=== PATIENT | female | born 2000 | race Caucasian/White ===

== ENCOUNTER 2021-05-03 14:15 | Day surgery (SDC) | payer MEDICAID, SELFPAY ==
[2021-05-03] VITALS (10 sets, daily range): BP systolic 126–158; BP diastolic 60–100; PULSE 89–139; RESP 16–18; TEMP 36.6–37.4; O2SAT 95–100; BMI 39.9
--- NOTE | 2021-05-03 14:35 | ED.VIS.FEGU ---
HPI HPI - Female History of Present Illness Chief Complaint: Vag Bleeding Informant: patient Narrative Narrative: Patient presents secondary abdominal cramping and increased vaginal bleeding. She had a medical 2 weeks ago at [facility]. She states was approximately 6 weeks along with a time. She states she had heavy bleeding for the first couple days but has been tapering off. Today she has had increased abdominal cramping and at school today had significant increase in vaginal bleeding. She states that she is passing fist-sized blood clots and is changing a tampon every 10 minutes or so. PFSH PFSH Medical History no medical history no medical history Allergy/AdvReac Type Severity Reaction Status Date / Time Penicillins [PCN] Allergy Hives Verified 05/03/21 14:17 Family History no significant family his Surgical History no surgical history Social History Smoking Status: Unknown if ever smoked ROS ROS ED Constitutional Constitutional ED: Denies chills or fever(s) Eyes Eyes: Denies change in vision ENT ENT ED: Denies sore throat Cardiovascular Cardiovascular: Denies chest pain Respiratory/Chest Respiratory/Chest: Denies cough or dyspnea Gastrointestinal Gastrointestinal: Reports abdominal pain; Denies diarrhea, nausea or vomiting Genitourinary Genitourinary ED: Denies dysuria Musculoskeletal Musculoskeletal: Denies back pain Integumentary Denies rash Neurologic Neurologic: Denies headache(s) or weakness Allergic/Immunologic Allergic/Immunologic ED: Denies urticaria EXAM Physical Exam Const Vital Signs: 05/03/21 14:17 05/03/21 15:14 Temperature 98 F Temperature Source Temporal Pulse Rate 139 H 100 Respiratory Rate 18 18 Blood Pressure 147/100 H 143/84 H Blood Pressure Mean 115 103 Pulse Ox 97 95 Oxygen Delivery Method Room Air Room Air Positive well nourished and well developed General Appearance ED: well developed HEENT Reports moist mucous membranes Eyes PERRL and EOMs intact bilaterally Neck supple Chest Wall inspection of chest normal and palpation of chest normal Resp normal respiratory effort and clear to auscultation bilaterally Cardio Rate: tachycardic GI soft to palpation Auscultation: hypoactive bowel sounds Extremity normal to inspection Neuro oriented x3 Sensorium / Orientation: alert Psych mental status grossly normal Skin no rashes or lesions noted MDM MDM MDM Narrative Medical decision making narrative: 2 IV lines initiated. Patient given IV fluid bolus. Lab work obtained. I spoke with Dr. Felix, on-call for no doc as soon as I saw the patient. She did request a pelvic ultrasound be performed and I asked them to perform that in the ER room. Lab Data Attestation: I reviewed the patient's lab results. Labs: Laboratory Results - last 24 hr 05/03/21 05/03/21 05/03/21 14:35 14:35 14:35 WBC 8.9 RBC 4.78 Hgb 13.4 Hct 38.4 MCV 80.3 L MCH 28.0 MCHC 34.9 RDW Std Deviation 38.9 RDW Coeff of Fdie 13.6 Plt Count 397 MPV 9.4 Immature Gran % (Auto) 0.300 Neut % (Auto) 67.6 Lymph % (Auto) 21.1 Pike % (Auto) 9.4 Eos % (Auto) 1.0 Baso % (Auto) 0.6 Absolute Neuts (auto) 6.0 Absolute Lymphs (auto) 1.88 Nucleated RBC % 0 PT 12.0 INR 0.9 APTT 31.0 Sodium 139 Potassium 3.2 L Chloride 107 Carbon Dioxide 24.0 Anion Gap 8 BUN 11 Creatinine 0.89 Estim Creat Clear Calc 104.50 Est GFR (MDRD) Af Amer 103 Est GFR (MDRD) Non-Af 85 BUN/Creatinine Ratio 12.4 Glucose 117 H Calcium 9.4 HCG, Quant Blood Type Antibody Screen 05/03/21 05/03/21 14:35 14:35 WBC RBC Hgb Hct MCV MCH MCHC RDW Std Deviation RDW Coeff of Fide Plt Count MPV Immature Gran % (Auto) Neut % (Auto) Lymph % (Auto) Pike % (Auto) Eos % (Auto) Baso % (Auto) Absolute Neuts (auto) Absolute Lymphs (auto) Nucleated RBC % PT INR APTT Sodium Potassium Chloride Carbon Dioxide Anion Gap BUN Creatinine Estim Creat Clear Calc Est GFR (MDRD) Af Amer Est GFR (MDRD) Non-Af BUN/Creatinine Ratio Glucose Calcium HCG, Quant 1779 H Blood Type A POSITIVE Antibody Screen NEGATIVE Radiography Diagnostic Testing: Clinical Impression(s) from Imaging Studies Transvaginal US 05/03/21 14:38 IMPRESSION: Thickened endometrium with the fluid pocket within the endometrium. Retained products of conception should be ruled out. Right ovarian cyst. Electronically Signed: Jefferson Anaya MD at 15:39 EST , Treatment and Re-Evaluation Comments:: Lab work reviewed. Hemoglobin is 13.4 hematocrit 38.4. Coags are normal. Chemistry studies significant only for low potassium at 3.2. Blood type is a positive. Quant is 1779. Ultrasound shows thickened endometrium at 22 mm with a fluid pocket in the endometrium. Retained products suspected. Dr. Felix did review the ultrasound images herself. Plan will be to take the patient to the OR for D&C. Discharge Plan Triage Chief Complaint: Vag Bleeding ED Provider: Carol Ghosh Dx/Rx/DC Orders Clinical Impression: Retained products of conception Referrals: XIOMARA ETIENNE [Other] Disposition Disposition: Acute Care [facility]
--- NOTE | 2021-05-03 14:38 | US_ITS ---
STUDY: ULTRASOUND OF THE FEMALE PELVIS - COMPLETE REASON FOR EXAM: Female, 20 years old. Vag bleeding -- portable . History of 2 weeks ago. LMP: 02/23/2021. TECHNIQUE: Transvaginal TECHNICAL QUALITY: Adequate. COMPARISON: None. FINDINGS: The uterus is anteverted and is in a midline position. The uterus measures 10.9 cm x 6.2 cm x 4.9 cm. Normal uterine cervix. The endometrium measures 22 mm in thickness, and is heterogeneous (striated). A fluid pocket of 1.8 cm x 1.1 cm x 0.9 cm is seen within the endometrium at the level of the cervix. Retained products of conception should be ruled out. There is no demonstrated myometrial mass. I.U.D. - The patient does not have an I.U.D. The right ovary is visualized. The right ovary measures 3.9 cm x 2.6 x 2.8 cm. There is a 2 cm x 1.5 cm x 1.6 cm right ovarian cyst. There is no visualized right adnexal mass or complex lesion. There is normal arterial and normal venous vascularity. The left ovary is visualized. The left ovary measures 2.5 cm x 2.8 cm x 2.3 cm. There is no left ovarian cyst or ovarian mass. There is no visualized left adnexal mass or complex lesion. There is normal arterial and normal venous vascularity. There is no fluid in the cul-de-sac. US/Transvaginal Non- IMPRESSION: Thickened endometrium with the fluid pocket within the endometrium. Retained products of conception should be ruled out. Right ovarian cyst. Electronically Signed: Jefferson Anaya MD at 15:39 EST ,
[2021-05-03] MEDS: 0.9% Normal Saline 1,000 ML 1000 ML IV (14:39)
[2021-05-03 14:54] LABS: Absolute Lymphocyte Count 1.88 X10^3/uL (0.83-4.51); Basophil# 0.05 X10^3/uL; Basophil% 0.6 % (0-1); Eosinophil# 0.09 X10^3/uL; Hematocrit 38.4 % (37-47); Hemoglobin 13.4 g/dL (12.0-15.0); Lymphocyte # 1.88 X10^3/ul (0.83-4.51); Lymphocyte % 21.1 % (19-41); Mean Corp Hgb Conc 34.9 g/dL (32-36); Mean Corpuscular Volume 80.3 fL (81-99); Mean Platelet Vol. 9.4 fl (6.2-12.0); Monocyte# 0.84 X10^3/uL; Monocyte% 9.4 % (0-10); NRBC Flagged by Analyzer 0 % (0-5); Neutrophil # 6.04 X10^3/uL (2.7-7.7); Neutrophil % 67.6 % (47-70); Platelet Count 397 K/mm3 (150-450); RBC Distribution Width CV 13.6 % (11.6-14.6); RBC Distribution Width SD 38.9 fl (35.1-43.9); Red Blood Count 4.78 M/mm3 (4.2-5.4); White Blood Count 8.9 K/mm3 (4.4-11.0)
[2021-05-03 14:58] LABS: International Normalized Ratio 0.9
[2021-05-03 15:07] LABS: Anion Gap 8 (5-15); BUN 11 mg/dL (7-18); BUN/Creat Ratio 12.4 RATIO (10-20); Calcium,Total 9.4 mg/dL (8.5-10.1); Chloride 107 mmol/L (98-107); Creatinine, Serum 0.89 mg/dL (0.55-1.02); EST Glomerular Filtration Rate 85 mL/min (>60); Est Glom Filt Rate - Afr Amer 103 mL/min (>60); Glucose 117 mg/dL (74-106); Potassium 3.2 mmol/L (3.5-5.1); Sodium Level 139 mmol/L (136-145)
[2021-05-03 15:36] LABS: hCG Titer Quant., Serum 1779 mIU/mL (1-3)
[2021-05-03] MEDS: 0.9% Normal Saline 1,000 ML 150 ML IV ×2 (15:37→18:37)
--- NOTE | 2021-05-03 15:54 | NURSING ---
SURGERY LIZZETH RETAINED PRODUCTS OF CONCEPTION
--- NOTE | 2021-05-03 16:30 | POC_PTH ---
PATIENT: KENA RAMIREZ LOC: [facility] [place] U#:[id number] AGE/SX: 20/F ROOM: RE05/03/[address]: Dr. Gina Felix MD : 2000 BED: DIS: 05/03/2021 SPEC #: [id number] RECD: 05/04/21 11:25 STATUS: VIPUL CRISTI #: [id number] SEDA: 05/03/21 16:[address]: Gina Felix DEPT: SURGICAL PATHOLOGY RECD BY: Jeanie Angel Tissues: Product of conception, NOS Procedures: Surgery Specimen Level IV HEADER OPERATION: Suction dilation and curettage PRE-OP DIAGNOSIS: Retained products of conception TISSUE SUBMITTED: Products of conception MICROSCOPIC DIAGNOSIS Products of conception: [place]id[place], gestational endometrium and immature chorionic villi (products of conception). GIOVANNI:britni 05/05/2021 MICROSCOPIC DESCRIPTION Slides are reviewed. GROSS DESCRIPTION Received in fixative is one container labeled with the patient's name and designated products of conception. The specimen consists of multiple fragments of hemorrhagic soft tissue mixed with blood clot that in aggregate measure 8 x 7 x 2 cm. tissue is not identified. Contact Center Team Lead tissue is submitted in three cassettes. / SJ:britni 05/04/2021 TC:5 CPT: 88385
[2021-05-03] MEDS: Doxycycline 100 MG CAPSULE PO (16:58)
--- NOTE | 2021-05-03 17:01 | PCM.HP.OB ---
HPI - General HPI Narrative KENA RAMIREZ, is a 20 F who presents with acute hemorrhage from retained POC. she had a medical two weeks ago at 6 weeks GA and now has had heavy bleeding, cramping, and presented to the ER tachycardic and hypertensive. US shows retained products. PFSH PFSH Medical History no medical history Allergy/AdvReac Type Severity Reaction Status Date / Time Penicillins [PCN] Allergy Hives Verified 05/03/21 14:17 Family History no significant family his Surgical History no surgical history Social History Smoking Status: Unknown if ever smoked ROS Constitutional Constitutional: Reports systems reviewed and no addt'l complaints, except as documented; Denies as per HPI, change in weight, fatigue, fever(s), malaise, weakness or other Eyes Eyes: Reports systems reviewed and no addt'l complaints, except as documented; Denies as per HPI, change in vision or other ENT HEENT: Reports systems reviewed and no addt'l complaints, except as documented Respiratory/Chest Respiratory/Chest: Reports systems reviewed and no addt'l complaints, except as documented Gastrointestinal Gastrointestinal: Reports systems reviewed and no addt'l complaints, except as documented and as per HPI Genitourinary Genitourinary: Reports as per HPI Musculoskeletal Musculoskeletal: Reports systems reviewed and no addt'l complaints, except as documented Neurologic Neurologic: Reports systems reviewed and no addt'l complaints, except as documented Psychiatric Psychiatric: Reports systems reviewed and no addt'l complaints, except as documented Endocrine Endocrinology: Reports systems reviewed and no addt'l complaints, except as documented Hematologic/Lymphatic Hematologic/Lymphatic: Reports systems reviewed and no addt'l complaints, except as documented Vital Signs Vital Signs Vital Signs: 05/03/21 14:17 05/03/21 15:14 05/03/21 16:08 Temperature 98 F 98 F Temperature Source Temporal Temporal Pulse Rate 139 H 100 115 H Respiratory Rate 18 18 18 Blood Pressure 147/100 H 143/84 H 140/68 H Blood Pressure Mean 115 103 92 Blood Pressure Source Blood Pressure Position Blood Pressure Location Pulse Ox 97 95 96 Oxygen Delivery Method Room Air Room Air Room Air 05/03/21 16:09 Temperature 98 F Temperature Source Temporal Pulse Rate 118 H Respiratory Rate 18 Blood Pressure 158/64 H Blood Pressure Mean 95 Blood Pressure Source Monitor Blood Pressure Position Supine Blood Pressure Location Right Arm Pulse Ox 96 Oxygen Delivery Method Room Air Weight Weight: 270 lb Body Mass Index (BMI) 39.9 Physical Exam Const alert, oriented x3 and no apparent distress HEENT normocephalic Head and Scalp: atraumatic Eyes EOMs intact bilaterally and conjunctivae normal Neck full ROM, no lymphadenopathy, supple and thyroid normal General: trachea midline Lymph Lymphatic: no lymphadenopathy noted Resp normal respiratory effort, no retractions, no use of accessory muscles and clear to auscultation bilaterally Cardio regular rhythm GI normal to inspection, nondistended, normoactive bowel sounds, soft to palpation, non-distended and no masses Inspection: Negative for abdominal distention Back/Spine no CVA tenderness Extremity normal to inspection Skin no rashes or lesions noted Neuro moves all extremities and deep tendon reflexes 2+ bilaterally Psych mental status grossly normal Labs Labs Labs: Blood Type A POSITIVE Antibody Screen NEGATIVE Hct 38.4 % (37-47) Hgb 13.4 g/dL (12.0-15.0) Assessment & Plan (1) Retained products of conception: COMMENT: failed medical , retained products with heavy bleeding recommend proceeding with suction d and c PLAN: After discussing the patient's diagnosis and treatment plan options, patient wishes to proceed with surgical management. I have discussed with the patient the risks, benefits, and alternatives of the procedure which include but are not limited to risks of anesthesia, bleeding, infection, possible damage to bowel, bladder, or surrounding vasculature which could lead to additional surgery to evaluate any complications. Patient agrees to procedure and wishes to proceed. ACOG/uptodate references given for additional information regarding procedure. Charges/Coding Visit Charges Office Visits / Consults: 42039 OV L4 New (ER consult taken to surgery same day ALERT BILLING)
--- NOTE | 2021-05-03 17:04 | OP.PCM_ITS ---
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 She was prepped and draped in the normal sterile fashion the dorsal lithotomy position. Bladder was drained of clear urine and anterior lip of the cervix was grasped and the uterus sounded to 10cm. Cervix was already dilated enough to allow passage of a 10mm suction curette. Progressive passes were made removing the retained products of conception without complication. Sharp curettage confirmed complete removal of the retained products. cytotec and pitocin were given. All instruments were removed from the vagina and excellent hemostasis was noted and the patient was taken to recovery in stable condition. Grafts/Implants Used: none Complications none Admit VTE Documentation VTE Present on Admission: No VTE Mechan Device Prophylaxis: SCD's Procedures Urinary/Genital 52xxx-59xxx: 53353 Trmt of incomplete Ab, any TM
--- NOTE | 2021-05-03 17:04 | EX.PCM.DISCH ---
Discharge Instructions Procedure D&C Diet Discharge Diet: No restrictions Activity Discharge Activity: Return to Normal Activity, May Shower and May Take a Tub Bath (after 1 week) May resume sexual activity in: 1-2 weeks Weight Bearing Status: Weight bearing as tolerated Lifting Restrictions: none Dressing / Incision Call your doctor if you observe: Fever of 101 or Higher, Using more than 1 pad per hour, Shortness of breath and Uncontrolled pain Follow Up Care Please Follow Up With: Gina Felix MD When: Call [phone] to schedule appointment. Test Results: Test results from this visit will be discussed in further detail at your follow-up appointment, if applicable. Discharge Plan Admission Attending Provider: Gina Felix Discharge Orders/Prescriptions Referrals / Follow Up: XIOMARA ETIENNE [Other]
[2021-05-03] MEDS: miSOPROStol 200 MCG Tablet (17:30)
[2021-05-03 18:01] LABS: Absolute Lymphocyte Count 1.36 X10^3/uL (0.83-4.51); Absolute Neutrophil Count 8.8 X10^3/uL (2.0-7.7); Basophil# 0.04 X10^3/uL; Basophil% 0.4 % (0-1); Eosinophil# 0.01 X10^3/uL; Eosinophils% 0.1 % (0-5); Hematocrit 33.2 % (37-47); Hemoglobin 11.7 g/dL (12.0-15.0); Lymphocyte # 1.36 X10^3/ul (0.83-4.51); Lymphocyte % 12.6 % (19-41); Mean Corp Hgb Conc 35.2 g/dL (32-36); Mean Corpuscular Hgb 28.4 pg (27.0-32.0); Mean Corpuscular Volume 80.6 fL (81-99); Mean Platelet Vol. 9.5 fl (6.2-12.0); Monocyte# 0.56 X10^3/uL; Monocyte% 5.2 % (0-10); NRBC Flagged by Analyzer 0 % (0-5); Neutrophil % 81.2 % (47-70); Platelet Count 339 K/mm3 (150-450); RBC Distribution Width CV 13.6 % (11.6-14.6); RBC Distribution Width SD 39.2 fl (35.1-43.9); Red Blood Count 4.12 M/mm3 (4.2-5.4); White Blood Count 10.8 K/mm3 (4.4-11.0)
[2021-05-03 18:20] LABS: Fibrinogen 314 mg/dl (203-444)
== END 2021-05-03 23:59 | disposition home or self-care (01) ==
LOC: ED 15:50 → SDC 16:03 → ACINP 16:04
PROVIDERS: Emergency Provider Emergency Medicine; Visit Provider Obstetrics & Gynecology
PROC: (CPT 59812; principal; 2021-05-03 16:15)
DX: O03.4 Incomplete spontaneous abortion without complication (principal)
CPT/HCPCS: 59812; 01965; 76830; 80048; 84702; 85025; 85384; 85610; 85730; 86850; 86900; 86901; 87426; 88305; 99285; J7030; J7120; A4216; J2405

== ENCOUNTER 2022-02-02 21:24 | Outpatient (CLI) | payer MEDICAID, SELFPAY ==
[2022-02-02 22:00] VITALS: BMI 40.8
[2022-02-02 22:06] VITALS: O2SAT 96
[2022-02-02 22:07] VITALS: BP 126/76; PULSE 114; TEMP 36.5; O2SAT 99
[2022-02-02 22:51] VITALS: PULSE 95; O2SAT 81
--- NOTE | 2022-02-02 22:59 | OB.TRI.HP_ITS ---
HPI - General HPI Narrative KENA RAMIREZ, is a 21 F at 30.5 weeks gestation who presents to triage with occasional cramps. Patient stated she was working all day and when she got home noticed some irregular cramps. Denies any loss of fluid or vaginal bleeding. Positive movement. [facility] PFS Medical History Retained products of conception Home Medications 1 tablet PO.IVFORM DAILY see provider 02/02/22 [History Last Taken 02/02/22 08:00] aspirin 81 mg chewable tablet 81 mg PO DAILY see provider 02/02/22 [History Last Taken 02/02/22 08:00] escitalopram oxalate 20 mg tablet (Lexapro) 20 mg PO DAILY see provider 02/02/22 [History Last Taken 01/31/22 08:00] famotidine 20 mg tablet (Pepcid) 20 mg PO DAILY see provider 02/02/22 [History Last Taken 02/02/22 08:00] Allergy/AdvReac Type Severity Reaction Status Date / Time Penicillins [PCN] Allergy Hives Verified 02/02/22 22:00 Social History Smoking Status: Unknown if ever smoked ROS Eyes Eyes: Denies blurry vision Cardiovascular Cardiovascular: Reports none; Denies chest pain at rest, chest pain with activity or dizziness Respiratory/Chest Respiratory/Chest: Denies cough or dyspnea Gastrointestinal Gastrointestinal: Reports none and other; Denies diarrhea or vomiting Genitourinary Genitourinary: Denies dysuria Musculoskeletal Musculoskeletal: Reports none Integumentary Integumentary: Reports none; Denies rash Neurologic Neurologic: Denies dizziness, headache(s) or other visual disturbances Psychiatric Psychiatric: Reports none Physical Exam Const alert and no apparent distress General Appearance: cooperative Orientation / Consciousness: awake Exam Limitations: no limitations HEENT normocephalic Eyes General Eye: normal appearance of both eyes Neck full ROM Chest inspection of chest normal Resp normal respiratory effort and normal air movement Effort and Inspection: symmetric chest movement Auscultation: clear to auscultation bilaterally Cardio regular rate GI soft to palpation, non-tender and non-distended Inspection: and other Back/Spine normal ROM Extremity full ROM, normal capillary refill and no calf tenderness Skin no rashes or lesions noted Neuro oriented x3 and CN's II-XII intact bilaterally Psych mental status grossly normal Assessment & Plan (1) 30 weeks gestation of : (2) Abdominal cramping: (3) Dehydration during : PLAN: Plan No contractions seen via TOCO or palpated NST reactive UA- ketones- patient admits to low fluid/food intake due to being busy PO since arrival and feeling better D/C home with instructions for hydration and PTL precautions Patient agrees with plan of care
[2022-02-02 23:40] LABS: Color, Urine Yellow (Yellow); Glucose, Dipstick Normal (Normal); Leukocyte Esterase-Dipstick 25 /ul (Negative); Nitrite-Dipstick Negative (Negative); Occult Blood-Urine 10 /ul (Negative); Protein-Dipstick 30 mg/dl (Negative); Specific Gravity, Urine 1.025 (1.002-1.030); Urine Bilirubin Dipstick Negative (Negative); Urine Clarity Clear (Clear); Urine Urobilinogen Normal (Normal)
[2022-02-02 23:44] LABS: Ketone-Dipstick 150 mg/dl (Negative)
== END 2022-02-02 23:50 | disposition home or self-care (01) ==
LOC: WPOUT 21:28 → WP 21:28
PROVIDERS: Referring Provider Advanced Practice Midwife; Visit Provider Advanced Practice Midwife
DX: O26.893 Other specified pregnancy related conditions, third trimester (principal); R10.9 Unspecified abdominal pain; Z3A.30 30 weeks gestation of pregnancy; E86.0 Dehydration; Z79.82 Long term (current) use of aspirin
CPT/HCPCS: 59025; 59050; 81002; 99218; G0378

== ENCOUNTER 2022-04-03 05:02 | Inpatient (IN) | payer MEDICAID, SELFPAY ==
--- NOTE | 2022-03-29 16:35 | HP.PCM_ITS ---
History and Physical Date of Admission: 04/03/22 Pre-Op History and Physical ? HPI: The patient is a 21 year old female presenting for pre-operative visit. She is scheduled for and bilateral salpingectomy, for repeat scheduled cs at 39 weeks and desires sterilization on 04/03/22. Procedure discussed along with risks, benefits and complications. Other alternatives discussed for management. Consent form signed? Yes. ? ? PAST MEDICAL HISTORY PAST MEDICAL HISTORY Diagnosis Date ? Anemia 01/16/2019 ? Last Assessment & Plan: I am going to refill your Iron once I get your labs back and decide if it is still needed. ? COVID-19 ? ? tested positive by rapid test 12/2020; sx fully resolved ? Iron deficiency 01/30/2019 ? Last Assessment & Plan: Your iron levels are still slightly low, make sure you stay on your daily iron of 325 mg daily. ? Oppositional defiant disorder 09/28/2014 ? Scoliosis 08/27/2013 ? Last Assessment & Plan: You did your xray at [facility] today, will look for results and let you know what they are once I get them back. ? ? PAST SURGICAL HISTORY PAST SURGICAL HISTORY Procedure Laterality Date ? SECTION HX ? 06/22/2020 ? TONSILLECTOMY AND ADENOIDECTOMY HX ? ? ? around 2010, 10yo ? ? ? CURRENT MEDICATIONS Current Outpatient Medications Medication Sig Dispense Refill ? famotidine (PEPCID) 20 mg tablet Take 1 tablet by mouth twice daily. 30 tablet 1 ? escitalopram oxalate (LEXAPRO) 20 mg tablet Take 1 tablet by mouth once daily. 90 tablet 0 ? aspirin, enteric coated (ECOTRIN LOW STRENGTH) 81 mg EC tablet Take 1 tablet by mouth once daily. 30 tablet 4 ? PNV no.95/ferrous fum/folic ac ( ORAL) Take by mouth. ? ? ? ferrous sulfate 325 mg (65 mg iron) tablet Take 325 mg by mouth. ? ? ? No current facility-administered medications for this visit. ? ? ALLERGIES: Penicillins ? PERSONAL HISTORY: SOCIAL HISTORY Social History ? Tobacco Use ? Smoking status: Former ? Smokeless tobacco: Never ? Tobacco comments: ? ? vaping daily Vaping Use ? Vaping Use: Former Substance Use Topics ? Alcohol use: Yes ? ? Comment: once in awhile ? Drug use: Never ? FAMILY HISTORY: FAMILY HISTORY FAMILY HISTORY Problem Relation Age of Onset ? Heart Mother ? ? Hypertension Father ? ? Panic Disorder Sister ? ? Anxiety disorder Sister ? ? No Known Problems Maternal Grandmother ? ? Heart Attack Maternal Grandfather ? ? Dementia Paternal Grandmother ? ? No Known Problems Paternal Grandfather ? ? ? REVIEW OF SYMPTOMS: negative except as noted above PHYSICAL EXAMINATION: ? VITALS: Blood pressure 127/82, weight 287 lb (130.2 kg), last menstrual period 07/02/2021. ? GENERAL: The patient is well nourished, well hydrated in no acute distress. , The patient is oriented to time, place, and person. NECK: full range of motion Abdomen: soft, gravid, non tedner ? IMPRESSION: 21yo @ 38.4 weeks ? PLAN: repeat cs and bilateral salpingectomy at 39 weeks ? Pt has been counseled on risks/benefits and alternatives of surgery including but not limited to anesthesia, bleeding, infection, injury to pelvic structures including bowel, bladder, ureters and vessels. Pt wishes to proceed with surgery at this time. Risk of transfusion reviewed. Risk of regret and permanency of sterilization reviewed. ? Pre and post op instructions reviewed. ? I have reviewed and updated past medical and surgical history, medications and allergies Monica Menjivar MD ?
[2022-04-03] VITALS (24 sets, daily range): BP systolic 104–132; BP diastolic 56–76; PULSE 90–116; RESP 16–18; TEMP 35.9–37.1; O2SAT 97–100; BMI 42.5
[2022-04-03] MEDS: Lactated Ringers 1,000 ML 999 ML IV (05:32)
[2022-04-03] MEDS: Acetaminophen 500 MG Tablet 1000 MG PO ×4 (05:50→23:51)
[2022-04-03 05:52] LABS: Absolute Lymphocyte Count 1.88 X10^3/uL (0.83-4.51); Absolute Neutrophil Count 7.1 X10^3/uL (2.0-7.7); Basophil# 0.04 X10^3/uL; Basophil% 0.4 % (0-1); Eosinophil# 0.05 X10^3/uL; Eosinophils% 0.5 % (0-5); Hematocrit 35.9 % (37-47); Hemoglobin 11.9 g/dL (12.0-15.0); Lymphocyte # 1.88 X10^3/ul (0.83-4.51); Lymphocyte % 19.3 % (19-41); Mean Corp Hgb Conc 33.1 g/dL (32-36); Mean Corpuscular Hgb 26.6 pg (27.0-32.0); Mean Corpuscular Volume 80.1 fL (81-99); Mean Platelet Vol. 9.7 fl (6.2-12.0); Monocyte# 0.62 X10^3/uL; Monocyte% 6.4 % (0-10); NRBC Flagged by Analyzer 0 % (0-5); Neutrophil # 7.08 X10^3/uL (2.7-7.7); Neutrophil % 72.5 % (47-70); Platelet Count 244 K/mm3 (150-450); RBC Distribution Width CV 14.1 % (11.6-14.6); RBC Distribution Width SD 40.2 fl (35.1-43.9); Red Blood Count 4.48 M/mm3 (4.2-5.4); White Blood Count 9.8 K/mm3 (4.4-11.0)
[2022-04-03] MEDS: Lactated Ringers 1,000 ML 150 ML IV (06:35)
[2022-04-03] MEDS: Sodium Citrate/Citric Acid 30 ML UDC PO (06:36)
--- NOTE | 2022-04-03 07:34 | FALS_PTH ---
PATIENT: KENA RAMIREZ LOC: [facility] U#:[id number] AGE/SX: 21/F ROOM: WP006 RE04/03/[address]: Dr. Monica Brewer, MDDOB: 2000 BED: 1 DIS: 04/04/2022 SPEC #: [id number] RECD: 04/03/22 09:50 STATUS: VIPUL CRISTI #: [id number] SEDA: 04/03/22 07:[address]: Monica Brewer DEPT: SURGICAL PATHOLOGY RECD BY: Jeanie Angel Tissues: Fallopian tube Procedures: Surgery Specimen Level II HEADER OPERATION: Tubal ligation PRE-OP DIAGNOSIS: Sterilization TISSUE SUBMITTED: Fallopian tubes, right side stitch MICROSCOPIC DIAGNOSIS Right fallopian tube, salpingectomy: Complete segment of fallopian tube with no pathologic change. Left fallopian tube, salpingectomy: Complete segment of fallopian tube with no pathologic change. AM:britni 04/04/2022 MICROSCOPIC DESCRIPTION Slides are reviewed. GROSS DESCRIPTION Received in fixative is one container labeled with the patient's name and designated bilateral fallopian tubes right side stitch. The specimen consists of bilateral fallopian tubes including fimbrial ends. The right fallopian tube measures 5 cm in length and up to 0.7 cm in diameter and left fallopian measures 6 cm in length and 0.5 to 1 cm in diameter. Sections reveal unremarkable cut surfaces. Tanker Driver sections are submitted in two cassettes as follows: 1 ? right fallopian tube, 2 ? left fallopian tube. / GIOVANNI:britni 04/03/2022 TC:4 CPT: 28878 x2
--- NOTE | 2022-04-03 08:08 | OP.PCM_ITS ---
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 sHe was placed in the supine position. She was then prepped and draped in normal sterile fashion. Once spinal anesthesia was found to be adequate skin incision was made with a scalpel in a Pfannenstiel fashion. It was carried down to the underlying layer of the fascia. Fascia was then incised midline with scapel and extended laterally using traction. 2 straight [place]'s were placed in the superior aspect of the fascial edge and the rectus muscles were dissected off bluntly. rectus muscles seperated bluntly. Using blunt force the peritoneum was then entered. Opposing traction was placed. Uterine incision was made in a low transverse fashion with the scalpel and then entered bluntly. Gentle opposing traction was placed to extend the uterine incision. The membranes were ruptured amniotic fluid clear. Placenta was encountered. Infant's head was then brought to the uterine incision was delivered atraumatically followed by the rest infant's body. At this time delay ed cord clamping was performed mouth nose were suctioned. Infant was then handed to the waiting nursery team. The placenta was then removed with gentle traction. The uterus was removed from the intra-abdominal cavity is wrapped in a moist lap. uterus was cleared of all clots and debris using a moist lap. Ring clamps were placed on the uterine angles. #1 Vicryl suture was used in a running locked fashion for the first layer. Followed by second imbricating layer with #1 Vicryl. Tubes and ovaries were evaluated they were normal. The tubes were grasped in an avascular area with the [place]. LigaSure was used to coagulate and ligate along the mesosalpinx on the left tube. Once the tube was completely removed the uterus was then placed back in the intra-abdominal cavity. This was then repeated on the right side. Ira was placed on both pedicles. Great hemostasis was appreciated at this time the uterine incision was again evaluated good hemostasis was appreciated. The peritoneum was grasped with Kellys. Peritoneum was reapproximated using #2 Vicryl suture in a running fashion. The fascia was then reapproximated using #1 PDS in a running fashion. Ira placed over the rectus muscles. Subcutaneous layer was evaluated and Bovie was used for any small oozing that was noted. Ira placed over subcutaneous layer. Per #2-0 plain gut suture was then used to reapproximate the subcutaneous layer 4-0 Vicryl on a [place] needle was used to reapproximate the skin in a subcutaneous fashion. Dry sterile dressing was applied. Instrument lap needle count were correct ?2. Anticipated normal postoperative course for this patient. Presentation: Positive for Vertex Amniotic Membrane Rupture Type: Artificial Amniotic Fluid Description: Clear Placental Delivery Description: Expressed Placenta Disposition: [facility] Cord Vessel Description: 3 Vessels Cord Entanglement: None A Gender: Male (1 minute): 8 (5 minute): 8 Delayed Cord Clamping: Yes Complications Risks of Surgery Discussed w/Patient: Bleeding, Anesthesia Risks, Infection, Permanency, Injury to surrounding structure(s) including bowel and bladder and Availability of other non-permanent control options Complications: none
[2022-04-03] MEDS: Ketorolac 30 MG/ML Syringe IV ×3 (08:46→20:30)
[2022-04-03] MEDS: Oxytocin 15 Units/NS 250ml 15 UNITS/250 ML IV.SOLN 83 UNITS IV (08:49)
[2022-04-03] MEDS: Senna/Docusate Sodium 1 Tablet PO (09:56)
--- NOTE | 2022-04-03 11:28 | NURSING ---
This RN not able to chart fundal check in this PACU scoring assessment. Fundal assessment done at this time by this RN and charted separately in a shift clinical finding section.
[2022-04-03] MEDS: Lactated Ringers 1,000 ML 100 ML IV (11:49)
[2022-04-03] MEDS: Prenatal Vits Tablet 1 TABLET PO (11:49)
[2022-04-03] MEDS: Enoxaparin 40 MG/0.4 ML Syringe SC (20:30)
[2022-04-03] MEDS: 0.9% Saline Lock 10 ML Syringe IV (20:30)
[2022-04-04 02:27] VITALS: RESP 18; O2SAT 96
[2022-04-04] MEDS: Ketorolac 30 MG/ML Syringe IV (03:06)
[2022-04-04 04:40] VITALS: BP 110/59; PULSE 88; PULSE 94; RESP 18; O2SAT 98
[2022-04-04 05:43] VITALS: RESP 18; O2SAT 96
[2022-04-04] MEDS: Acetaminophen 500 MG Tablet 1000 MG PO ×2 (05:43→12:46)
[2022-04-04 06:00] LABS: Hemoglobin 10.1 g/dL (12.0-15.0); Mean Corp Hgb Conc 32.6 g/dL (32-36); Mean Corpuscular Hgb 26.9 pg (27.0-32.0); Mean Corpuscular Volume 82.4 fL (81-99); Mean Platelet Vol. 9.8 fl (6.2-12.0); Platelet Count 207 K/mm3 (150-450); RBC Distribution Width CV 14.1 % (11.6-14.6); RBC Distribution Width SD 41.2 fl (35.1-43.9); Red Blood Count 3.76 M/mm3 (4.2-5.4); White Blood Count 11.9 K/mm3 (4.4-11.0)
[2022-04-04 07:35] VITALS: BP 119/68; PULSE 92; RESP 18; TEMP 36.9; O2SAT 97
[2022-04-04] MEDS: Ibuprofen 600 MG Tablet PO ×2 (09:13→15:19)
[2022-04-04] MEDS: Enoxaparin 40 MG/0.4 ML Syringe SC (10:17)
[2022-04-04] MEDS: Prenatal Vits Tablet 1 TABLET PO (10:18)
[2022-04-04] MEDS: Senna/Docusate Sodium 1 Tablet PO (10:18)
[2022-04-04] MEDS: Escitalopram Oxalate 20 MG Tablet PO (10:18)
[2022-04-04 12:00] VITALS: BP 117/70; PULSE 98; RESP 16; TEMP 36.8; O2SAT 97
--- NOTE | 2022-04-04 15:22 | PCM.DC.SUM ---
Providers Date of Admission: 04/03/22 Primary Care Physician: XIOMARA ETIENNE Reason For Visit: REPEAT C/S Medications at Discharge Home Medications 1 tablet PO.IVFORM DAILY see provider 02/02/22 escitalopram oxalate 20 mg tablet (Lexapro) 20 mg PO DAILY see provider 02/02/22 ibuprofen 600 mg tablet 600 mg PO Q6H #0 tabs 04/04/22 oxycodone 5 mg tablet 5 mg PO Q4H PRN PRN Pain Score 4-10 7 days #10 tabs 04/04/22 sennosides 8.6 mg-docusate sodium 50 mg tablet (Stool Softener-Stimulant Laxative) 1 - 2 tab PO DAILY #30 tabs 04/04/22 Hospital Course Summary of Care Provided Hospital Course: Repeat section on 04/03/22. Course uneventful. Discharge home on POD #1 Weight / BMI Weight Weight: 288 lb 3.2 oz Body Mass Index (BMI) 42.5 ABG / Lab / Microbiology Data Result Diagrams: 04/04/22 05:45 Laboratory: Laboratory Results - last 24 hr 04/04/22 05:45: WBC 11.9 H, RBC 3.76 L, Hgb 10.1 L, Hct 31.0 L, MCV 82.4, MCH 26.9 L, MCHC 32.6, RDW Std Deviation 41.2, RDW Coeff of Fide 14.1, Plt Count 207, MPV 9.8 Meaningful Use Info Meaningful Use Diagnoses (Choose all that apply): None applicable Discharge Plan Admission Admit Date/Time: 04/03/22 05:02 Primary Reason for Your Visit: section Attending Provider: Monica Brewer Primary Care Provider: XIOMARA ETIENNE Discharge Orders/Prescriptions Prescriptions: New ibuprofen 600 mg Tablet 600 mg PO Q6H Qty: 0 0RF oxycodone 5 mg Tablet 5 mg PO Q4H PRN PRN (Reason: Pain Score 4-10) 7 Days Qty: 10 0RF sennosides-docusate sodium [Stool Softener-Stimulant Laxat] 8.6-50 mg Tablet 1 - 2 tab PO DAILY Qty: 30 0RF Continued escitalopram oxalate [Lexapro] 20 mg Tablet 20 mg PO DAILY 1 tablet PO.IVFORM DAILY Discontinued famotidine [Pepcid] 20 mg Tablet 20 mg PO DAILY aspirin [Baby Aspirin] 81 mg Tablet,Chewable 81 mg PO DAILY Referrals / Follow Up: XIOMARA ETIENNE [Other] Monica Brewer MD [Med Staff - Active Staff] - (Follow up in 2 weeks and 6 weeks) Disposition Disposition (needs filled in before D/C Order can be placed): Home, Self Care
--- NOTE | 2022-04-04 15:26 | PCM.PN.OB ---
Subjective Subjective Doing well per patient and nursing staff. Ambulating and taking PO without difficulty. Voiding and passing flatus. Pain controlled. , services for assistance. Denies headache, visual changes, chest pain, shortness of breath, leg pain or increased bleeding. Lochia normal. Objective Data Objective Data Vital Signs: Vital Signs Temp Pulse Resp BP Pulse Ox O2 Del Method 98.3 F 98 16 117/70 97 Room Air 04/04/22 12:00 04/04/22 12:00 04/04/22 12:00 04/04/22 12:00 04/04/22 12:00 04/04/22 12:00 Oxygen Delivery Method Room Air Weight: 288 lb 3.2 oz Body Mass Index (BMI) 42.5 Intake & Output: Intake and Output for Last 24 Hours 04/02/22 04/03/22 04/04/22 23:59 23:59 23:59 Intake Total 3179.5 / 3179.5 Output Total 1075 / 1075 Balance 2104.5 / 2104.5 Lab / Micro Data Result Diagrams: 04/04/22 05:45 Labs: Laboratory Results - last 24 hr 04/04/22 05:45: WBC 11.9 H, RBC 3.76 L, Hgb 10.1 L, Hct 31.0 L, MCV 82.4, MCH 26.9 L, MCHC 32.6, RDW Std Deviation 41.2, RDW Coeff of Fide 14.1, Plt Count 207, MPV 9.8 Physical Exam Const alert and oriented x3 General Appearance: cooperative Orientation / Consciousness: awake, oriented to person, oriented to place and oriented to time Exam Limitations: no limitations HEENT normocephalic Head and Scalp: normal to inspection, normocephalic and atraumatic Face and Sinus: normal facial exam Eyes General Eye: normal appearance of both eyes Neck full ROM Chest Chest: symmetrical chest wall rise Resp normal respiratory effort and normal air movement Auscultation: clear to auscultation bilaterally Cardio regular rate, regular rhythm, S1 normal heart sound, S2 normal heart sound, no murmurs, no rub, no gallops and no clicks GI normal to inspection, nondistended, normoactive bowel sounds and non-tender appearance of the vagina normal Bladder / Kidney Exam: no CVA tenderness Back/Spine normal ROM Extremity normal to inspection and full ROM Skin no rashes or lesions noted Neuro oriented x3, CN's II-XII intact bilaterally and moves all extremities Sensorium / Orientation: awake, alert and oriented to person Motor Exam: clonus absent Deep Tendon Reflexes: Rt Patellar (L4): 2+ and Lt Patellar (L4): 2+ Assessment & Plan (1) Delivery by section: PLAN: Plan 1) Routine postoperative care 2) Vitals stable 3) I&O 4) Pain management 5) D/C home 6) Follow up in 1-2 weeks for incision check and 6 week PP visit
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
[2022-04-04 17:50] VITALS: BP 137/85; PULSE 99; RESP 18; TEMP 36.2; O2SAT 98
[2022-04-05 10:36] LABS: Pathology Specimen OB SEE PATHOLOGY REPORT
--- NOTE | 2022-04-06 11:48 | CASEMGMT ---
Social Work Labor and Delivery unit Help me grow referral submitted through the [facility] assisted care web-based referral system. No other services requested or indicated. -WERNER Bartlett, PRODUCE ASSOCIATE. *This note was generated with [employer] dictation software. It may contain incorrect words, spelling, and punctuation that were not noted in review of the chart prior to signing*
== END 2022-04-04 18:15 | disposition home or self-care (01) | DRG 539 ==
PROVIDERS: Admitting Provider Obstetrics & Gynecology; Visit Provider Obstetrics & Gynecology
PROC: 0UT70ZZ Resection of Bilateral Fallopian Tubes, Open Approach (ICD-10-PCS; CPT 59514; principal; 2022-04-03 06:55)
DX: O34.211 Maternal care for low transverse scar from previous cesarean delivery (principal); D50.9 Iron deficiency anemia, unspecified; F31.9 Bipolar disorder, unspecified; O99.02 Anemia complicating childbirth; O99.344 Other mental disorders complicating childbirth; Z30.2 Encounter for sterilization; Z37.0 Single live birth; Z3A.39 39 weeks gestation of pregnancy; Z79.82 Long term (current) use of aspirin; Z86.16 Personal history of COVID-19; Z87.891 Personal history of nicotine dependence; Z87.59 Personal history of other complications of pregnancy, childbirth and the puerperium
CPT/HCPCS: 59025; 59050; 85025; 85027; 86850; 86900; 86901; 88302; 99221; 99406; J7120; A4216; G0378; J2405